=== PATIENT | male | born 1995 ===

== ENCOUNTER 2017-04-21 00:21 | Emergency (ER) | payer OTHER ==
[2017-04-21 00:39] VITALS: BP 106/74; PULSE 78; RESP 18; TEMP 98.2; O2SAT 99
[2017-04-21] MEDS ORDERED: Lidocaine 2% Inj (20ml) IJ STA (00:40)
[2017-04-21] MEDS ORDERED: TDAP Vaccine 0.5 mL Syr IM ONE (00:40)
--- NOTE | 2017-04-21 00:42 | ED PDOC ---
Arrival/HPI <MadonnaCholo - Last Filed: 04/21/17 01:24> - General Historian: Patient - History of Present Illness Symptom Onset: Sudden Symptom Course: Unchanged Activities at Onset: Light Context: Work <Sheela Mccarty - Last Filed: 04/21/17 02:00> - General Chief Complaint: Abnormal Skin Integrity Time Seen by Provider: 04/21/17 00:29 - History of Present Illness Narrative History of Present Illness (Text): 04/21/17 00:38 21 year old male who presents to the emergency department complaining of lacerations to right 3rd finger and right 5th finger after accidentally cutting himself at work with a box truck washer prior to arrival. Patient states he was trying to cut a box open when the knife slipped through and cut him. Patient is unsure of his last tetanus vaccination and reports pain only to laceration site. Patient denies any numbness/tingling/weakness to the extremity or any other complaints. Patient did not take any medication for pain at home. (Sheela Mccarty) Past Medical History - Provider Review Nursing Documentation Reviewed: Yes <Sheela Mccarty - Last Filed: 04/21/17 02:00> Family/Social History - Physician Review Nursing Documentation Reviewed: Yes Family/Social History: Unknown Family HX <Sheela Mccarty - Last Filed: 04/21/17 02:00> Allergies/Home Meds <Madonna,Cholo - Last Filed: 04/21/17 01:24> <Sheela Mccarty - Last Filed: 04/21/17 02:00> Allergies/Adverse Reactions: Allergies No Known Allergies Allergy (Verified 04/21/17 00:38) Review of Systems - Physician Review All systems were reviewed & negative as marked: Yes - Review of Systems Constitutional: Normal. absent: Fevers Eyes: Normal ENT: Normal Respiratory: Normal. absent: SOB, Cough Cardiovascular: Normal. absent: Chest Pain Gastrointestinal: Normal. absent: Abdominal Pain, Diarrhea, Nausea, Vomiting Genitourinary Male: Normal. absent: Dysuria, Frequency, Hematuria, Urinary Output Changes Musculoskeletal: Normal. absent: Back Pain, Neck Pain Skin: Laceration Neurological: Normal. absent: Headache, Dizziness Endocrine: Normal Hemo/Lymphatic: Normal Psychiatric: Normal <Sheela Mccarty - Last Filed: 04/21/17 02:00> Physical Exam Vital Signs Reviewed: Yes Temperature: Afebrile Blood Pressure: Normal Pulse: Regular Respiratory Rate: Normal Appearance: Positive for: Well-Appearing, Non-Toxic, Comfortable Pain Distress: Moderate Mental Status: Positive for: Alert and Oriented X 3 - Systems Exam Head: Present: Atraumatic, Normocephalic Conjunctiva: Present: Normal Mouth: Present: Moist Mucous Membranes Respiratory/Chest: Present: Clear to Auscultation, Good Air Exchange. No: Respiratory Distress, Accessory Muscle Use Cardiovascular: Present: Regular Rate and Rhythm, Normal S1, S2. No: Murmurs Upper Extremity: Present: Normal ROM (Fulll ROM of all digits), NORMAL PULSES ( Distal pulses intact), Neurovascularly Intact (Distal sensation intact), Capillary Refill < 2s, Other (1 cm linear laceration to distal tip of right 3rd digit along the volar aspect, no active bleeding. 2cm linear laceration horizontally across distal tip of 5th right digit along the volar aspect, no active bleeding. ). No: Cyanosis, Edema, Tenderness, Swelling, Erythema, Temperature Abnormalties, Deformity Lower Extremity: Present: Edema, Normal ROM Neurological: Present: GCS=15, Speech Normal Skin: Present: Warm, Dry, Normal Color. No: Rashes Psychiatric: Present: Alert, Oriented x 3 <Sheela Mccarty - Last Filed: 04/21/17 02:00> Vital Signs Temp Pulse Resp BP Pulse Ox 04/21/17 00:34 98.2 F 78 18 106/74 99 Medical Decision Making <Cholo Peacock - Last Filed: 04/21/17 01:24> <Sheela Mccarty - Last Filed: 04/21/17 02:00> ED Course and Treatment: 04/21/17 00:38 Patient is nontoxic well appearing in no distress. Vital signs are stable. Patient with lacerations to the right third and right fifth finger status post injury Wound irrigated well with high pressure irrigation Tetanus updated Motrin Keflex Laceration repair: 9 total sutures placed. 3 in the right third finger and 6 in the right fifth finger Bacitracin and dressing applied Patient was advised to keep the wound clean and dry, apply bacitracin twice daily. Patient was advised to follow-up with a hand specialist within the next 2 days. Patient was advised to return in 7-10 days for suture removal Advised to return immediately if signs of infection develop or return if any other concerning symptoms develop Patient verbalizes understanding of discharge instructions and need for immediate followup. all aspects of this case were discussed the attending of record. Impression: Laceration fingers Motrin every 6 hours as needed for pain Keflex 1 capsule 4 times daily 7 days Keep the wound clean and dry, apply bacitracin twice daily Return in 7-10 days for suture removal Return immediately if signs of infection develop: High fevers, increasing pain, redness, swelling, purulent discharge Follow up with the hand specialist within the next 2 days. Followup with primary care physician within the next 2 days Return if any other concerning symptoms develop (Sheela Mccarty) - RAD Interpretation Radiology Orders: 04/21/17 00:41 HAND RIGHT 3 VIEWS [RAD] Stat - Medication Orders Current Medication Orders: Discontinued Medications Cephalexin Monohydrate (Keflex) 500 mg PO STAT STA PRN Reason: Protocol Stop: 04/21/17 00:41 Last Admin: 04/21/17 01:04 Dose: 500 mg Ibuprofen (Motrin Tab) 600 mg PO STAT STA Stop: 04/21/17 00:41 Last Admin: 04/21/17 01:04 Dose: 600 mg Lidocaine HCl (Lidocaine 2% 20ml Vial) 3 ml IJ ONCE STA Stop: 04/21/17 00:41 Tetanus/Reduced Diphtheria/Acell Pertussis (Boostrix Vaccine Inj) 0.5 ml IM .ONCE ONE Stop: 04/21/17 00:41 Last Admin: 04/21/17 01:05 Dose: 0.5 ml Procedure: Wound Repair - Procedure Procedure: Wound Repair: right hand 3rd and 5th finger lacerations - Consent Obtained Consent obtained: Verbal - Performed by Performed by: Mid-level Provider - Indications Indication(s):: Laceration - Location Finger:: Right, Middle, Little Shape:: Linear Dimensions Length cm: right 3rd finger 1cm linear, right 5th finger 2cm linear - Anesthetic Technique Anesthetic Technique: Regional block (digital block) Local/Regional Anesthetic:: Lidocaine 2% (2cc in right 3rd and 2cc in right 5th finger) - Debris Debris:: None - Irrigated Irrigated with ml of normal saline: copious amounts of NS using high pressure irrigation - Complexity Complexity:: Simple (one layer) - Wound repair method Sutures:: # (3rd finger; three 4.0 nylone interrupted; 5th finger; six 4.0 nylon interrupted. ) - Complications Complications: none - Patient tolerated procedure Patient Tolerated Procedure:: Well <Sheela Mccarty - Last Filed: 04/21/17 02:00> - PA / FRUIT PICKER / Resident Statement / has reviewed & agrees with the documentation as recorded. MD/DO has examined the patient and agrees with the treatment plan. <Cholo Peacock - Last Filed: 04/21/17 01:24> - Scribe Statement The provider has reviewed the documentation as recorded by the Scribe <Sheela Mccarty - Last Filed: 04/21/17 02:00> - Scribe Statement Mariely Neri All medical record entries made by the Scribe were at my direction and personally dictated by me. I have reviewed the chart and agree that the record accurately reflects my personal performance of the history, physical exam, medical decision making, and the department course for this patient. I have also personally directed, reviewed, and agree with the discharge instructions and disposition. (Sheela Mccarty) Disposition/Present on Arrival <MadonnaCholo - Last Filed: 04/21/17 01:24> - Present on Arrival Any Indicators Present on Arrival: No History of DVT/PE: No History of Uncontrolled Diabetes: No Urinary Catheter: No History of Decub. Ulcer: No - Disposition Have Diagnosis and Disposition been Completed?: Yes Disposition Time: 01:56 Patient Plan: Discharge <Sheela Mccarty - Last Filed: 04/21/17 02:00> - Disposition Diagnosis: Laceration of fingers without complication Disposition: HOME/ ROUTINE Condition: GOOD Discharge Instructions (ExitCare): Care For Your Stitches (ED), Laceration (ED) Print Language: OCCITAN Additional Instructions: Motrin every 6 hours as needed for pain Keflex 1 capsule 4 times daily 7 days Keep the wound clean and dry, apply bacitracin twice daily Return in 7-10 days for suture removal Return immediately if signs of infection develop: High fevers, increasing pain, redness, swelling, purulent discharge Follow up with the hand specialist within the next 2 days. Followup with primary care physician within the next 2 days Return if any other concerning symptoms develop Prescriptions: Bacitracin OINT 1 applic TP BID #1 tube Cephalexin [Keflex] 500 mg PO QID #28 capsule Ibuprofen [Motrin] 600 mg PO Q6H PRN #20 tab PRN Reason: pain/fever reduction Referrals: Humphrey Ruff MD [Staff Provider] - Follow up with primary Vidhi Amor MD [Non-Staff] - Follow up with primary Emmy Vázquez MD [Staff Provider] - Follow up with primary [employer] [facility] [Outside] - Follow up with primary [facility] [place] [Outside] - Follow up with primary Forms: [employer] (U[place]ayan), WORK NOTE
--- NOTE | 2017-04-21 10:33 | RAD ---
PROCEDURE: Right Hand Radiographs. HISTORY: laceration, 3rd and 5th distal phalanx COMPARISON: None. FINDINGS: BONES: Normal. No fracture. JOINTS: Normal. No osteoarthritic changes. SOFT TISSUES: Normal. OTHER FINDINGS: None. IMPRESSION: Normal right hand radiographs.
== END 2017-04-21 02:11 | disposition home or self-care (01) ==
LOC: ED 00:21
DX: S61.212A Laceration without foreign body of right middle finger without damage to nail, initial encounter (principal); S61.216A Laceration without foreign body of right little finger without damage to nail, initial encounter; W26.0XXA Contact with knife, initial encounter; Y93.89 Activity, other specified; Y92.69 Other specified industrial and construction area as the place of occurrence of the external cause; Y99.0 Civilian activity done for income or pay; Z23 Encounter for immunization

== ENCOUNTER 2017-05-06 08:20 | Emergency (ER) | payer OTHER ==
[2017-05-06 08:40] VITALS: TEMP 98.9; O2SAT 98
--- NOTE | 2017-05-06 09:03 | ED PDOC ---
Arrival/HPI - General Chief Complaint: Suture/Staple Removal Time Seen by Provider: 05/06/17 08:28 Historian: Patient - History of Present Illness Narrative History of Present Illness (Text): 05/06/17 09:22 21yo M with no PMHx here for suture removal. Patient was seen in [place] ED on for laceration to right 5th and right 3rd finger. He was using a hot box spotter to open boxes when it slipped and cut his fingers. He had 6 sutures to the 5th digit and 3 sutures to the 3rd digit. He denies any complaints. No F/C. Motor function intact. No other complaints. Time/Duration: > week Symptom Onset: Sudden Symptom Course: Improving Context: Work Past Medical History - Provider Review Nursing Documentation Reviewed: Yes - Past History Past History: No Previous - Infectious Disease Hx of Infectious Diseases: None - Tetanus Immunization Tetanus Immunization: Up to Date - Psychiatric Hx Substance Use: No - Anesthesia Hx Anesthesia: No Family/Social History - Physician Review Nursing Documentation Reviewed: Yes Family/Social History: Unknown Family HX Smoking Status: n Hx Alcohol Use: No Hx Substance Use: No Allergies/Home Meds Allergies/Adverse Reactions: Allergies No Known Allergies Allergy (Verified 05/06/17 08:40) Home Medications: Home Meds Medication Instructions Recorded Confirmed No Known Home Med 05/06/17 05/06/17 Review of Systems - Physician Review All systems were reviewed & negative as marked: Yes - Review of Systems Constitutional: absent: Fevers ENT: Normal Respiratory: Normal Cardiovascular: Normal Gastrointestinal: Normal Skin: Laceration (well healing) Physical Exam Vital Signs Reviewed: Yes Vital Signs Temp Pulse Resp BP Pulse Ox 05/06/17 09:11 72 17 122/82 98 05/06/17 09:00 68 18 120/76 98 05/06/17 08:37 98.9 F 71 14 118/75 98 Temperature: Afebrile Blood Pressure: Normal Pulse: Regular Respiratory Rate: Normal Appearance: Positive for: Well-Appearing, Non-Toxic, Comfortable Pain Distress: None Mental Status: Positive for: Alert and Oriented X 3 - Systems Exam Head: Present: Atraumatic, Normocephalic Extroacular Muscles: Present: EOMI Mouth: Present: Moist Mucous Membranes Abdomen: No: Tenderness, Distention, Rebound, Guarding Upper Extremity: Present: Other (right hand 5th digit with [address] and 3rd digit [address], skin edges well approximated, no drainage, no induration, no erythema ) Lower Extremity: No: CALF TENDERNESS, Tenderness Neurological: Present: GCS=15, CN II-XII Intact Skin: Present: Warm, Dry, Normal Color, Other (skin edges well approximated) Psychiatric: Present: Alert, Oriented x 3 Medical Decision Making ED Course and Treatment: 05/06/17 09:30 21yo M here for suture removal - Skin edges well approximated. All sutures still present - Removed 6 sutures from 5th digit. Removed 3 sutures from 3rd digit - Discussed with patient about wound care and follow up with primary care physician. All questions and concerns addressed. Disposition/Present on Arrival - Present on Arrival Any Indicators Present on Arrival: No History of DVT/PE: No History of Uncontrolled Diabetes: No Urinary Catheter: No History of Decub. Ulcer: No History Surgical Site Infection Following: None - Disposition Have Diagnosis and Disposition been Completed?: Yes Diagnosis: Visit for suture removal Disposition: HOME/ ROUTINE Disposition Time: 09:00 Patient Plan: Discharge Condition: GOOD Discharge Instructions (ExitCare): Stitches Removal (ED) Additional Instructions: 1. Follow up with your Primary Care Physician. 2. Return to the ER with any concerning symptoms. Referrals: PCP,NO [Primary Care Provider] - Follow up with primary Forms: [employer] (Swedish)
[2017-05-06 09:12] VITALS: BP 122/82; PULSE 72; RESP 17
== END 2017-05-06 09:13 | disposition home or self-care (01) ==
LOC: ED 08:20
DX: Z48.02 Encounter for removal of sutures (principal)